=== PATIENT | male | born 1945 | race Caucasian/White ===

== ENCOUNTER → 2016-05-01 | Day surgery (SDC) | payer BC ==
[2016-04-22 15:51] VITALS: Ht 182.9 cm; Wt 80.9 kg
[~2016-05-01] VITALS: Ht 182.9 cm; Wt 80.9 kg
[~2016-05-01] MED LIST: 500ML BSS 0.3ML EPI 1:1000PF IRRIG ONE; ACETAMINOPHEN 325 MG TAB PO PRN; AMVISC PLUS 0.8ML SYRINGE INT OCU ONE; ASPCH81X PO; ATROPINE SULFATE 0.1 MG/ML 5ML SYR IV PRN; BSS FLUSH ONE; CHOL20009 PO; ENDOCOAT 0.85ML SYRINGE INT OCU ONE; EpHEDrine SULFATE INJ 50 MG/ML AMP IV PRN; EpINEphrine INJ 1MG/ML AMP 1 MG/ML AMP ONE; HYDR12.55 PO; LACTATED RINGER'S 1000ML 500 ML IV SCH; LIDOCAINE 4% OP SOLN DROP CHARGE ONE; LIDOCAINE 4% OP SOLN DROP CHARGE OPR SCH; LIDOCAINE HCL 1% MPF 2 ML VIAL ONE; METR0.754 TOP; MIDAZOLAM HCL 1 MG/ML 2ML VIAL ONE; MIX: 4ML BSS 1ML EPI 1:1000 PF INSTIL ONE; MOXIFLOXACIN OPH SOLN PER DROP CHARGE ONE; MULT-506 PO; OFLO0.3S4 OPR; OMEP20CA59 PO; POVIDONE-IODINE OP SOLN 30 ML BTL ONE; PRED1SUS3 OPR; PROPARACAINE 0.5% OP SOLN PER DROP CHARGE OPR SCH; TOBRAMYCIN/DEXAMETHASONE OPH OINT PER APPLN CHARGE ONE
[2016-05-01] MEDS: PHENYLEPHRINE HCL 2.5% OP SOLN PER DROP CHARGE OPR SCH ×3 (08:28→08:38)
[2016-05-01] MEDS: TROPICAMIDE 1% OP SOLN PER DROP CHARGE OPR SCH ×3 (08:29→08:39)
[2016-05-01] MEDS: CYCLOPENTOLATE HCL 1% OP SOLN PER DROP CHARGE OPR SCH ×3 (08:30→08:40)
[2016-05-01] MEDS: MOXIFLOXACIN OPH SOLN PER DROP CHARGE OPR SCH ×3 (08:31→08:41)
--- NOTE | 2016-05-01 08:59 | History & Physical Bridge - [place] ---
H&P Re-Evaluation Bridge Note: I have examined the patient, reviewed the History & Physical and in the interval since the performance of the History & Physical I have noted the following changes of clinical significance: No changes noted
--- NOTE | 2016-05-01 10:08 | [facility] Post Operative Brief Note ---
Immediate Operative Summary Operative Date May 01, 2016. Pre-Operative Diagnosis Cataract Right Eye Post-Operative Diagnosis Same Procedure(s) Performed Right Cataract Phacoemulsification With Intraocular Lens Implant Surgeon Dr. Ventura Aids Social Worker Surgeon(s) None Estimated Blood Loss 0 mL Findings right cataract Specimens None Complication(s) None Disposition
[2016-05-01 10:09] VITALS: TEMP 36.6
--- NOTE | 2016-05-01 10:09 | [facility] Operative Report ---
Operative Report Phaco with monofocal IOL DATE OF OPERATION: 05/01/16 PREOPERATIVE DIAGNOSIS: Senile nuclear cataract, right eye POSTOPERATIVE DIAGNOSIS: Senile nuclear cataract, right eye PROCEDURE PERFORMED: Phacoemulsification with intraocular lens implantation, right eye SURGEON: Dr. Dax Ventura ANESTHESIA: Topical with 1% intracameral lidocaine and monitored anesthesia care COMPLICATIONS: None DESCRIPTION OF PROCEDURE: After positively identifying the patient both verbally and by wristband in the preoperative area, the right eye was marked as the operative eye. The patient was then brought back to the operating room by the anesthesia and nursing staff where they were given a drop of Lidocaine and betadine into the operative eye. They were then sterilely prepped and draped in the standard fashion typical for ophthalmic surgery. Steri-strips were placed along the upper eyelids to keep the lashes back, and a lid speculum was placed into the operative eye. At this point, a documented time out was performed with members of the ophthalmology, nursing, and anesthesia staffs all agreeing upon the correct patient, correct location for surgery, correct procedure, and correct type and power of intraocular lens to be implanted. The microscope was then swung into position. First, a paracentesis wound was made using a sideport blade. Then, in sequence, 1% preservative-free lidocaine followed by Endocoat viscoelastic was injected into the anterior chamber. Next , the main incision was made with a keratome blade in triplanar fashion. A sharp cystotome was introduced into the eye and used to create a tear in the anterior capsule, which was directed into a continuous curvilinear capsulorrhexis using Utrata forceps. Hydrodissection was then performed with BSS on a flat-tip cannula. Next, the phacoemulsification handpiece was introduced into the eye and used to remove the nucleus in a [id number] fashion. This was done without complication and then the irrigation-aspiration handpiece was introduced into the eye and used to remove all remaining cortical and epinuclear material. Amvisc was then injected into the anterior chamber as well as into the capsular bag and using the lens injector system, an MX60 22.5 D lens, serial number [id number], and expiration date 10/2018 was injected into the capsular bag and rotated into the correct position. Next, the irrigation- aspiration handpiece was used to remove all remaining Amvisc. BSS was used to hydrate the main wound, and then BSS was injected into the paracentesis site to reach physiologic pressure and then the main wound was checked and found to be watertight. The patient was given drops of Vigamox and Tobradex ointment into the operative eye, and then the surrounding area was cleaned and dried. A clear plastic shield was placed over the eye and the patient was then sat up and taken from the operating room by the anesthesia staff having tolerated the procedure well and suffering no complications. DISPOSITION: The patient was returned to the recovery room in stable condition. I attest to the content of the Intraoperative Record and any orders documented therein. Any exceptions are noted below.
--- NOTE | 2016-05-01 10:10 | Discharge Instructions-SurgCtr ---
Discharge Instructions Visit Reason for Visit: Cataract Right Eye Discharge Discharge Diagnosis / Problem: right cataract Discharge Goals Goal(s): Decrease discomfort, Improve function Activity Recommendations Activity Limitations: as noted below Anesthesia . Post Anesthesia Instructions: If you have had General Anesthesia or IV Sedation: * Do not drive today. * Resume driving when surgeon permits. * Do not make important decisions or sign legal documents today. * Call surgeon for: 1. Temperature elevations greater than 101 degrees F. 2. Uncontrollable pain. 3. Excessive bleeding. 4. Persistent nausea and vomiting. 5. Medication intolerance (nausea, vomiting or rash). * For nausea and vomiting use only clear liquids such as: tea, soda, bouillon until nausea subsides, then gradually increase diet as tolerated. * If you have any concerns or questions, call your surgeon's office. If physician is unavailable and it is an emergency, call 911 or go to the nearest emergency room. . Instructions / Follow-Up Instructions / Follow-Up ACTIVITY RECOMMENDATIONS: * Light activities. * You may walk outside, read, watch television. * You may notice redness on the white part of the eye and some blurry vision - this is normal. MEDICATIONS: Resume previous medications unless instructed otherwise by your surgeon. Start all eye drops at 12 pm today: * Eye drops (today): Prednisone - one drop in operative eye every 2 hours while awake Ofloxacin - one drop in operative eye every 2 hours while awake SPECIAL CARE INSTRUCTIONS: * Tape plastic shield over eye to sleep at night. Call your doctor at with any concerns or problems. FOLLOW UP VISIT: Follow-up with Dr Ventura at [facility] as scheduled. Diet Recommendations Home Diet: no limitations Procedures Procedures Performed: Right Cataract Phacoemulsification With Intraocular Lens Implant Pending Studies Studies pending at discharge: no Medical Emergencies . Who to Call and When: Medical Emergencies: If at any time you feel your situation is an emergency, please call 911 immediately. . Non-Emergent Contact Non-Emergency issues call your: Surgeon . . "Provider Documentation" section prepared by Dax Ventura.
--- NOTE | 2016-05-01 10:23 | Anesthesia Progress Nt - [facility] ---
Anesthesia Post Op Note Date & Time May 01, 2016 at 10:23 Vital Signs Pain Intensity: 0 Vital Signs Past 12 Hours Date Time Temp Pulse Resp B/P Pulse Ox O2 Delivery O2 Flow Rate FiO2 05/01/16 10:09 36.6 62 12 128/84 97 Room Air 05/01/16 08:22 36.1 64 16 117/76 98 Room Air Notes Mental Status: alert / awake / arousable, participated in evaluation Pt Amnestic to Procedure: Yes Nausea / Vomiting: adequately controlled Pain: adequately controlled Airway Patency, RR, SpO2: stable & adequate BP & HR: stable & adequate Hydration State: stable & adequate Anesthetic Complications: no major complications apparent
[2016-05-01 10:27] VITALS: BP 114/71; PULSE 61; O2SAT 96
== END | disposition home or self-care (01) ==
LOC: X.SURG 08:17
PROVIDERS: ATTEND Ophthalmology
DX: H25.11 Age-related nuclear cataract, right eye (principal); Z98.49 Cataract extraction status, unspecified eye; H25.049 Posterior subcapsular polar age-related cataract, unspecified eye; K21.9 Gastro-esophageal reflux disease without esophagitis

== ENCOUNTER → 2016-05-15 | Day surgery (SDC) | payer BC ==
[2016-05-09 10:53] VITALS: Ht 182.9 cm; Wt 80.9 kg
[~2016-05-15] VITALS: Ht 182.9 cm; Wt 80.9 kg
[~2016-05-15] MED LIST changes: +FENTANYL CITRATE INJ 50 MCG/1 ML 2 ML VIAL IV PRN; +LIDOCAINE 4% OP SOLN DROP CHARGE OPL SCH; -LIDOCAINE 4% OP SOLN DROP CHARGE OPR SCH; -MIX: 4ML BSS 1ML EPI 1:1000 PF INSTIL ONE; +MIX: 4ML BSS 1ML EPI 1:1000 PF TOP ONE; -OFLO0.3S4 OPR; +ONDANSETRON INJ 2 MG/ML 2 ML VIAL IV PRN; +PROPARACAINE 0.5% OP SOLN PER DROP CHARGE OPL SCH; -PROPARACAINE 0.5% OP SOLN PER DROP CHARGE OPR SCH
[2016-05-15] MEDS: PHENYLEPHRINE HCL 2.5% OP SOLN PER DROP CHARGE OPL SCH ×3 (06:35→06:45)
[2016-05-15] MEDS: CYCLOPENTOLATE HCL 1% OP SOLN PER DROP CHARGE OPL SCH ×3 (06:36→06:46)
[2016-05-15] MEDS: TROPICAMIDE 1% OP SOLN PER DROP CHARGE OPL SCH ×3 (06:36→06:46)
[2016-05-15] MEDS: MOXIFLOXACIN OPH SOLN PER DROP CHARGE OPL SCH ×3 (06:37→06:47)
--- NOTE | 2016-05-15 07:30 | [facility] Post Operative Brief Note ---
Immediate Operative Summary Operative Date May 15, 2016. Pre-Operative Diagnosis Cataract Left Eye Post-Operative Diagnosis Same Procedure(s) Performed Left Cataract Phacoemulsification With Intraocular Lens Implant Surgeon Dr. Ventura Driver/Guide Surgeon(s) None Estimated Blood Loss None Findings left cataract Specimens None Complication(s) None Disposition
--- NOTE | 2016-05-15 07:31 | [facility] Operative Report ---
Operative Report Phaco with monofocal IOL DATE OF OPERATION: 05/15/16 PREOPERATIVE DIAGNOSIS: Senile nuclear cataract, left eye POSTOPERATIVE DIAGNOSIS: Senile nuclear cataract, left eye PROCEDURE PERFORMED: Phacoemulsification with intraocular lens implantation, left eye SURGEON: Dr. Dax Ventura ANESTHESIA: Topical with 1% intracameral lidocaine and monitored anesthesia care COMPLICATIONS: None DESCRIPTION OF PROCEDURE: After positively identifying the patient both verbally and by wristband in the preoperative area, the left eye was marked as the operative eye. The patient was then brought back to the operating room by the anesthesia and nursing staff where they were given a drop of Lidocaine and betadine into the operative eye. They were then sterilely prepped and draped in the standard fashion typical for ophthalmic surgery. Steri-strips were placed along the upper eyelids to keep the lashes back, and a lid speculum was placed into the operative eye. At this point, a documented time out was performed with members of the ophthalmology, nursing, and anesthesia staffs all agreeing upon the correct patient, correct location for surgery, correct procedure, and correct type and power of intraocular lens to be implanted. The microscope was then swung into position. First, a paracentesis wound was made using a sideport blade. Then, in sequence, 1% preservative-free lidocaine followed by Endocoat viscoelastic was injected into the anterior chamber. Next , the main incision was made with a keratome blade in triplanar fashion. A sharp cystotome was introduced into the eye and used to create a tear in the anterior capsule, which was directed into a continuous curvilinear capsulorrhexis using Utrata forceps. Hydrodissection was then performed with BSS on a flat-tip cannula. Next, the phacoemulsification handpiece was introduced into the eye and used to remove the nucleus in a [id number] fashion. This was done without complication and then the irrigation-aspiration handpiece was introduced into the eye and used to remove all remaining cortical and epinuclear material. Amvisc was then injected into the anterior chamber as well as into the capsular bag and using the lens injector system, an MX60 22.0 D lens, serial number [id number], and expiration date 07/2018 was injected into the capsular bag and rotated into the correct position. Next, the irrigation- aspiration handpiece was used to remove all remaining Amvisc. BSS was used to hydrate the main wound, and then BSS was injected into the paracentesis site to reach physiologic pressure and then the main wound was checked and found to be watertight. The patient was given drops of Vigamox and Tobradex ointment into the operative eye, and then the surrounding area was cleaned and dried. A clear plastic shield was placed over the eye and the patient was then sat up and taken from the operating room by the anesthesia staff having tolerated the procedure well and suffering no complications. DISPOSITION: The patient was returned to the recovery room in stable condition. I attest to the content of the Intraoperative Record and any orders documented therein. Any exceptions are noted below.
--- NOTE | 2016-05-15 07:32 | Discharge Instructions-SurgCtr ---
Discharge Instructions Visit Reason for Visit: Cataract Left Eye Discharge Discharge Diagnosis / Problem: left cataract Discharge Goals Goal(s): Decrease discomfort, Improve function Activity Recommendations Activity Limitations: as noted below Anesthesia . Post Anesthesia Instructions: If you have had General Anesthesia or IV Sedation: * Do not drive today. * Resume driving when surgeon permits. * Do not make important decisions or sign legal documents today. * Call surgeon for: 1. Temperature elevations greater than 101 degrees F. 2. Uncontrollable pain. 3. Excessive bleeding. 4. Persistent nausea and vomiting. 5. Medication intolerance (nausea, vomiting or rash). * For nausea and vomiting use only clear liquids such as: tea, soda, bouillon until nausea subsides, then gradually increase diet as tolerated. * If you have any concerns or questions, call your surgeon's office. If physician is unavailable and it is an emergency, call 911 or go to the nearest emergency room. . Instructions / Follow-Up Instructions / Follow-Up ACTIVITY RECOMMENDATIONS: * Light activities. * You may walk outside, read, watch television. * You may notice redness on the white part of the eye and some blurry vision - this is normal. MEDICATIONS: Resume previous medications unless instructed otherwise by your surgeon. Start all eye drops at 9:30 am today: * Eye drops (today): Prednisone - one drop in operative eye every 2 hours while awake Ofloxacin - one drop in operative eye every 2 hours while awake SPECIAL CARE INSTRUCTIONS: * Tape plastic shield over eye to sleep at night. Call your doctor at with any concerns or problems. FOLLOW UP VISIT: Follow-up with Dr Ventura at [facility] as scheduled. Diet Recommendations Home Diet: no limitations Procedures Procedures Performed: Left Cataract Phacoemulsification With Intraocular Lens Implant Pending Studies Studies pending at discharge: no Medical Emergencies . Who to Call and When: Medical Emergencies: If at any time you feel your situation is an emergency, please call 911 immediately. . Non-Emergent Contact Non-Emergency issues call your: Surgeon . . "Provider Documentation" section prepared by Dax Ventura.
[2016-05-15 07:36] VITALS: TEMP 36.3
--- NOTE | 2016-05-15 07:39 | Anesthesiology Progress Note ---
Anesthesia Post Op Note Date & Time May 15, 2016 at 07:38 Vital Signs Pain Intensity: 0 Vital Signs Past 12 Hours Date Time Temp Pulse Resp B/P Pulse Ox O2 Delivery O2 Flow Rate FiO2 05/15/16 07:36 36.3 58 16 122/81 96 Room Air 05/15/16 06:22 36.4 63 16 118/76 95 Room Air Notes Mental Status: alert / awake / arousable, participated in evaluation Pt Amnestic to Procedure: Yes Nausea / Vomiting: adequately controlled Pain: adequately controlled Airway Patency, RR, SpO2: stable & adequate BP & HR: stable & adequate Hydration State: stable & adequate Anesthetic Complications: no major complications apparent
[2016-05-15 07:43] VITALS: BP 113/77; PULSE 70; O2SAT 96
== END | disposition home or self-care (01) ==
LOC: X.SURG 06:15
PROVIDERS: ATTEND Ophthalmology
DX: H25.12 Age-related nuclear cataract, left eye (principal); Z68.24 Body mass index [BMI] 24.0-24.9, adult

== ENCOUNTER → 2016-10-16 | Outpatient (CLI) | payer BC ==
[~2016-10-16] MED LIST changes: -500ML BSS 0.3ML EPI 1:1000PF IRRIG ONE; -ACETAMINOPHEN 325 MG TAB PO PRN; -AMVISC PLUS 0.8ML SYRINGE INT OCU ONE; -ATROPINE SULFATE 0.1 MG/ML 5ML SYR IV PRN; -BSS FLUSH ONE; -ENDOCOAT 0.85ML SYRINGE INT OCU ONE; -EpHEDrine SULFATE INJ 50 MG/ML AMP IV PRN; -EpINEphrine INJ 1MG/ML AMP 1 MG/ML AMP ONE; -FENTANYL CITRATE INJ 50 MCG/1 ML 2 ML VIAL IV PRN; -LACTATED RINGER'S 1000ML 500 ML IV SCH; -LIDOCAINE 4% OP SOLN DROP CHARGE ONE; -LIDOCAINE 4% OP SOLN DROP CHARGE OPL SCH; -LIDOCAINE HCL 1% MPF 2 ML VIAL ONE; -MIDAZOLAM HCL 1 MG/ML 2ML VIAL ONE; -MIX: 4ML BSS 1ML EPI 1:1000 PF TOP ONE; -MOXIFLOXACIN OPH SOLN PER DROP CHARGE ONE; -ONDANSETRON INJ 2 MG/ML 2 ML VIAL IV PRN; -POVIDONE-IODINE OP SOLN 30 ML BTL ONE; -PROPARACAINE 0.5% OP SOLN PER DROP CHARGE OPL SCH; -TOBRAMYCIN/DEXAMETHASONE OPH OINT PER APPLN CHARGE ONE
== END | disposition home or self-care (01) ==
LOC: C.RDSM 12:20
PROVIDERS: ATTEND Family Medicine Sports Medicine
DX: M79.672 Pain in left foot (principal)

== ENCOUNTER 2024-10-26 09:52 | Inpatient (IN) ==
[2024-10-26] MEDS: PLASMA-LYTE A 1,000 ML IV ONE (10:22)
--- NOTE | 2024-10-26 10:47 | Emergency Department Note ---
Impression & Plan Rhabdomyolysis, Anaplasmosis, Recurrent falls, Ambulatory dysfunction, Generalized weakness, Pancytopenia, Acute hyponatremia, Abrasion of face ED Provider Note NAME: SHALOM WOLFF AGE: 78 SEX: M : 1945 ARRIVES VIA: Walk-In INFORMANT: Patient, ED PROVIDER(S): Deven Constantino DO CHIEF COMPLAINT: weakness, falls HPI: This is a 78-year-old male with the PMHx of prostate cancer, hyperlipidemia, and esophageal reflux presenting to [facility] for further evaluation of significant weakness c/b multiple falls. History is by by the patient as well as his at the bedside. He reports that the over the weekend he went on a kayaking trip. He states over the last few days. He has been significantly weak as well as lightheaded. He does report vertiginous symptoms. Patient states this feels more like lightheadedness rather than the room spinning. Patient does have history of vertigo. He also reports intermittent nausea with multiple episodes of emesis. Patient has had 2 falls. Both falls have been within the home. Patient states that he fell while ambulating to the bathroom. He did fall onto his right side. He struck his head. Patient did not lose consciousness. He states that he felt nauseous and warm prior to the falls. Patient reports he has not been keeping up with his hydration status in the setting of that heat and exertional activities. They deny fever or chills. No cough or congestion. Denies chest pain or palpitations. No shortness of breath. They deny abdominal pain. No urinary complaints. No recent changes in bowel movements. Patient denies recent changes in medications or OTC supplements. Patient offers no other complaints, today. ADDITIONAL HISTORY OBTAINED: Per HPI Chronic Medical/Social Conditions Affecting Care: Per HPI PAST MEDICAL HISTORY: See Below PAST SURGICAL HISTORY: See Below FAMILY HISTORY: See Below SOCIAL HISTORY: See Below HOME MEDICATIONS: See Below ALLERGIES: See Below VITALS: See Below PHYSICAL EXAMINATION: GENERAL: Sitting up in bed, alert, well appearing, well nourished, no distress, non-toxic HEAD: Patient has right facial abrasions. No Medel sign. No other evidence of external head trauma. No contusions or hematoma present. EYE EXAM: normal conjunctiva. PERRL and EOM's grossly intact. OROPHARYNX: no exudate, no erythema, lips, buccal mucosa, and tongue normal and mucous membranes are moist, No blood within the oral cavity or loose teeth NECK: supple, no nuchal rigidity, no adenopathy, non-tender LUNGS: Clear to auscultation. Normal chest wall mechanics HEART: no murmurs, regular rate, regular rhythm ABDOMEN: abdomen soft, non-tender, normo-active bowel sounds, no masses, no rebound or guarding. BACK: Back is symmetrical on inspection and there is no deformity, no midline tenderness, no CVA tenderness. SKIN: no rashes and no bruising UPPER EXTREMITIES: upper extremities are grossly normal. LOWER EXTREMITIES: No pitting edema. NEURO EXAM: Normal sensorium, cranial nerves II-XII grossly intact, normal speech, no gross weakness of arms, no gross weakness of legs. No drift. Finger to nose intact. Gross sensation intact. MEDICAL DECISION MAKING: Differential diagnosis includes but not limited to peripheral vertigo, central etiology of vertigo, dehydration, electrolyte derangements, ACS, dysrhythmia,, pneumonia, pneumothorax, rib fracture, cervical spine fracture, intracranial hemorrhage, skull fracture, facial fracture and injuries In summary, this is a 78-year-old presenting for significant weakness and multiple falls. Triage and nursing notes reviewed. Patient is afebrile and hemodynamically stable. Diagnostics interpreted by me include EKG and cardiac monitoring as listed below: -Cardiac Monitoring: An order was placed for continuous cardiac monitoring. The monitor shows a rate of 70s with regular rhythm. -ECG: EKG independently 2 by me reveals normal sinus rhythm at a ventricular rate of [address] segment change/STEMI. There are supraventricular complexes that are premature on this rhythm strip. Intervals within normal limits. History provided by the patient includes weakness over the past few days with vertiginous symptoms. He has fallen multiple times over the course of the last few days. Head strike and evidence of head/facial trauma. Some prodromal symptoms prior to falling. Does appear hypovolemic. Suspect likely dehydration as well as peripheral vertigo. Doubt central etiology at this time. Physical examination reveals the only evidence of trauma includes right facial abrasions. Given history and presentation, we will proceed with CT head, C-spine and maxillofacial scan. Plan to collect basic lab work as well as EKG and chest x- ray. Will add CK on as the patient has had multiple falls and ambulatory dysfunction with unknown amount of downtime. We will provide IV fluid resuscitation. Labs and imaging reviewed. Pertinent findings include new pancytopenia with relatively stable anemia compared to prior. Patient does have minimal hyponatremia. Troponin was mildly elevated. Patient's symptoms are not consistent with angina. Patient's EKG is reassuring. Patient does have an elevated CK. I do believe the patient likely has acute rhabdomyolysis. Plan to repeat troponin. Chest x-ray independently interpreted by me reveals no acute displaced rib fracture, pneumothorax, pleural effusion or focal and filtrate to suggest pneumonia. CT head and C-spine independently interpreted by me as negative for acute intracranial pathology including hemorrhage and skull fracture. Patient CT max face revealed no acute facial fractures. We will continue IV fluid resuscitation for acute rhabdomyolysis. Given the patient's significant weakness and frequent falls, I am concerned for his safety at home. I do feel it is reasonable to admit this patient for IV hydration and clearance for return home. Lab did call with abnormal results. They reported inclusions consistent with anaplasmosis on CBC. Patient was started on doxycycline and I added tickborne illness panel to the patient's workup as well as blood smear. Will that his tickborne illness including anaplasmosis likely explains mild elevation in AST as well as his pancytopenia. Patient will need to continue doxycycline. I recommended to admit this patient to the hospital. The patient was discussed with Dr. Voss, [facility] hospitalist. He was agreeable to admit the patient and further history and my workup was discussed with the inpatient team. I discussed results as well as the treatment plan with the patient as well as his at the bedside. They verbalized understanding of results and treatment plan. They are agreeable to inpatient management. Consults/Care Managements Discussions: Per MDM ER treatment provided: See above Procedures:none Critical Care: None Past Med/Surg History Problem List (Updated 10/26/24 @ 16:23 by Deven Constantino DO) Abrasion of face (Acute) Acute hyponatremia (Acute) Pancytopenia (Acute) Generalized weakness (Acute) Ambulatory dysfunction (Acute) Recurrent falls (Acute) Anaplasmosis (Acute) Rhabdomyolysis (Acute) Elevated troponin Recurrent falls Weakness Anaplasmosis Rhabdomyolysis Urinary urgency Laceration of right thigh (Acute) Laceration of right thigh (Acute) Esophageal reflux Hypercalcemia Tubular adenoma of colon Depressive disorder, not elsewhere classified Other and unspecified hyperlipidemia Nephrolithiasis Prostate cancer screening encounter, options and risks discussed Encounter for pre-operative examination Hernia, inguinal, right Medical History Osteoporosis Inguinal hernia, right Kidney stones hx GERD (gastroesophageal reflux disease) Pilonidal cyst Surgical History H/O right inguinal hernia repair (02/14/22) Open Right Direct Inguinal Hernia Repair with Mesh. (Right) - Mitchell Ames MD, FACS Quadriceps tendon rupture s/p Left Open Quad Tendon Repair History of lithotripsy History of colonoscopy (2020) 2020 H/O arthroscopic knee surgery Family History Brother Kidney stone Social History Smoking Status: Never smoker Second Hand Exposure: Yes (PARENTS SMOKED); Do You Dip or Chew Tobacco: No; Hx Alcohol Use: Yes Alcohol type: wine and hard liquor Alcohol Intake Frequency: 4 or More x per/Week Hx Substance Use: No Preferred Language: Cambodian Communication Ability: Effective Visual Impairment: Limited Raw Hide Trimmer Required: No Beliefs That Will Affect Care: None marital status: Current Living Situation: Spouse current occupational status: retired How many Children do You have: 1 How many Children do You have Comment: daughter Feels Safe at Home: Yes during the past year weight has: remained stable Assistive Devices: Glasses Allergies Allergies Allergy/AdvReac Type Severity Reaction Status Date / Time No Known Allergies Allergy Mild Verified 10/26/24 13:04 Home Meds Home Medications Medication Instructions Recorded Confirmed multivitamin (Daily Multi-Vitamin 1 tab PO QAM 02/28/21 10/26/24 tablet) omeprazole 20 mg capsule,delayed 20 mg PO QAM 02/28/21 10/26/24 release alendronate 70 mg tablet 70 mg PO WK 05/18/21 10/26/24 cholecalciferol (vitamin D3) 50 50 mcg PO QAM 05/18/21 10/26/24 mcg (2,000 unit) tablet (Vitamin D3) loratadine 10 mg tablet 10 mg PO QAM 05/18/21 10/26/24 metronidazole 1 % topical cream 1 applic topical DAILY 05/29/21 10/26/24 aspirin 81 mg tablet,delayed 81 mg PO DAILY 02/14/22 10/26/24 release (Adult Low Dose Aspirin) allopurinol 100 mg tablet 200 mg PO QAM 10/26/24 10/26/24 colchicine 0.6 mg tablet 0.6 mg PO DAILY 10/26/24 10/26/24 hydrochlorothiazide 12.5 mg tablet 12.5 mg PO QAM 10/26/24 10/26/24 oxybutynin chloride 5 mg 5 mg PO DAILY PRN Urinary 10/26/24 10/26/24 tablet,extended release 24 hr Discomfort Results & Data (ED) Vital Signs Vital Signs - 24 hr 10/26/24 09:56 10/26/24 10:12 10/26/24 10:27 Temperature 37.2 C Temperature Source Temporal Artery Scan Pulse Rate 82 85 78 Pulse Rate from SpO2 Sensor Respiratory Rate 18 26 H 18 Respiratory Effort / Characteristics Non-Labored Spontaneous Respiratory Depth Normal Blood Pressure 114/63 Blood Pressure Mean 80 Blood Pressure Position Sitting Pulse Oximetry 98 Oxygen Delivery Method Room Air Sepsis Recent Fever Within 48 Hours No Sepsis New/Unexplained Change in Mental Status No Sepsis Action Taken by Nursing No Action Required 10/26/24 10:33 10/26/24 10:40 10/26/24 10:45 Temperature Temperature Source Pulse Rate 71 82 68 Pulse Rate from SpO2 Sensor Respiratory Rate 12 22 Respiratory Effort / Characteristics Respiratory Depth Blood Pressure Blood Pressure Mean Blood Pressure Position Pulse Oximetry Oxygen Delivery Method Sepsis Recent Fever Within 48 Hours Sepsis New/Unexplained Change in Mental Status Sepsis Action Taken by Nursing 10/26/24 10:51 10/26/24 10:56 10/26/24 10:57 Temperature Temperature Source Pulse Rate 71 76 69 Pulse Rate from SpO2 Sensor Respiratory Rate 23 18 24 Respiratory Effort / Characteristics Respiratory Depth Blood Pressure Blood Pressure Mean Blood Pressure Position Pulse Oximetry 96 Oxygen Delivery Method Room Air Sepsis Recent Fever Within 48 Hours Sepsis New/Unexplained Change in Mental Status Sepsis Action Taken by Nursing 10/26/24 11:11 10/26/24 11:18 10/26/24 11:21 Temperature Temperature Source Pulse Rate 74 69 Pulse Rate from SpO2 Sensor 67 67 Respiratory Rate 23 21 Respiratory Effort / Characteristics Respiratory Depth Blood Pressure 157/69 H Blood Pressure Mean 96 Blood Pressure Position Pulse Oximetry 95 95 Oxygen Delivery Method Sepsis Recent Fever Within 48 Hours Sepsis New/Unexplained Change in Mental Status Sepsis Action Taken by Nursing 10/26/24 11:27 10/26/24 11:30 10/26/24 11:30 Temperature Temperature Source Pulse Rate 67 Pulse Rate from SpO2 Sensor 74 Respiratory Rate 23 Respiratory Effort / Characteristics Respiratory Depth Blood Pressure 154/80 H 154/80 H Blood Pressure Mean 92 92 Blood Pressure Position Pulse Oximetry 97 Oxygen Delivery Method Sepsis Recent Fever Within 48 Hours Sepsis New/Unexplained Change in Mental Status Sepsis Action Taken by Nursing 10/26/24 11:33 10/26/24 11:45 10/26/24 12:00 Temperature Temperature Source Pulse Rate 64 68 Pulse Rate from SpO2 Sensor 67 71 Respiratory Rate 21 15 Respiratory Effort / Characteristics Respiratory Depth Blood Pressure 155/81 H Blood Pressure Mean 102 Blood Pressure Position Pulse Oximetry 94 96 Oxygen Delivery Method Sepsis Recent Fever Within 48 Hours Sepsis New/Unexplained Change in Mental Status Sepsis Action Taken by Nursing 10/26/24 12:00 10/26/24 12:00 10/26/24 12:03 Temperature Temperature Source Pulse Rate 82 Pulse Rate from SpO2 Sensor 74 Respiratory Rate 23 Respiratory Effort / Characteristics Respiratory Depth Blood Pressure 155/81 H 155/81 H Blood Pressure Mean 102 102 Blood Pressure Position Pulse Oximetry 92 Oxygen Delivery Method Sepsis Recent Fever Within 48 Hours Sepsis New/Unexplained Change in Mental Status Sepsis Action Taken by Nursing Laboratory Data 10/26/24 10:15 10/26/24 10:15 Lab Results 10/26/24 10/26/24 Range/Units 10:15 12:24 WBC 4.23 L (4.8-10.8) K/ul RBC 3.68 L (4.70-6.10) M/uL Hgb 12.0 L (14.0-18.0) g/dl Hct 35.2 L (42.0-52.0) % MCV 95.7 (80.0-100.0) fL MCH 32.6 (25.0-34.0) pg MCHC 34.1 (32.0-36.0) g/dL RDW Std Deviation 51.1 H (36.4-46.3) fL RDW Coeff of Sapphire 14.6 H (11.5-14.5) % Plt Count 82 L (130-400) K/uL MPV 10.4 (9.4-12.4) fL Immature Gran % (Auto) 0.5 % Neut % (Auto) 92.5 % Lymph % (Auto) 3.5 % [place] % (Auto) 3.3 % Eos % (Auto) 0.0 % Baso % (Auto) 0.2 % Neut # (Auto) 3.91 (1.40-6.50) K/uL Lymph # (Auto) 0.15 L (1.20-3.40) K/uL [place] # (Auto) 0.14 (0.11-0.59) K/uL Eos # (Auto) 0.00 (0.00-0.50) K/uL Baso # (Auto) 0.01 (0.00-0.20) K/uL Immature Gran # (Auto) 0.02 (0.01-0.20) K/uL Peripher Smr Path Cons Sodium 134 L (136-145) mmol/L Potassium 3.5 (3.5-5.1) mmol/L Chloride 101 (98-107) mmol/L Carbon Dioxide 25 (21-32) mmol/L Anion Gap 8 (3-11) BUN 19 (6-23) mg/dl Creatinine 1.09 (0.6-1.4) mg/dl Est Cr Clr Drug Dosing Not Reportable eGFR 69.47 BUN/Creatinine Ratio 17.4 (10-20) Glucose 109 H (70-99(Fasting)) mg/dl Calcium 8.3 L (8.6-10.3) mg/dl Magnesium 1.9 (1.7-2.4) mg/dl Total Bilirubin 0.9 (0.2-1.0) mg/dl AST 63 H (13-39) U/L ALT 30 (7-52) U/L Alkaline Phosphatase 67 (34-104) U/L Total Creatine Kinase 1296 H (30-223) U/L Troponin I High Sens 20.9 H 24.3 H (0-20) pg/ml Total Protein 6.4 (6.0-8.3) gm/dl Albumin 3.3 L (3.4-5.0) gm/dl Globulin 3.1 (2.5-4.0) gm/dl Albumin/Globulin Ratio 1.1 (0.9-2) Lipase 8 L (11-82) U/L Urine Color Yellow Urine Appearance Clear (Clear) Urine pH 5.5 (4.5-7.5) Ur Specific [place] 1.020 (1.000-1.030) Urine Protein 2+ H (Negative) Urine Glucose (UA) Negative (Negative) Urine Ketones 2+ H (Negative) Urine Blood 2+ H (Negative) Urine Nitrite Negative (Negative) Urine Bilirubin Negative (Negative) Urine Urobilinogen Negative (Negative) Ur Leukocyte Esterase Negative (Negative) Urine WBC (Auto) 0-5 (0-5) /hpf Urine RBC (Auto) 0-2 (0-2) /hpf U Hyaline Cast (Auto) 3-5 H (0-2) /lpf U Epithel Cells (Auto) 0-2 (0-2) /hpf Urine Bacteria (Auto) None Seen (None Seen) Urine Comment Anaplasma Smear See Comment A Cancelled Anaplasma Comment Pos for Anaplasma Babesia Smear Cancelled Lyme Disease Screen Positive H (Negative) Lyme Tier 2 IgG Confirm Positive H (Negative) Lyme Tier 2 IgM Confirm Negative (Negative) Administered Medications Lactated Ringer's (Lr) 1,000 mls @ 200 mls/hr IV .Q5H CLARI Stop: 10/29/24 12:29 Last Admin: 10/26/24 12:28 Dose: 200 mls/hr Documented By: DAVID Discontinued Medications Doxycycline Hyclate (Doxycycline Hyclate 100 Mg Cap) 100 mg PO NOW STA Stop: 10/26/24 12:07 Last Admin: 10/26/24 12:28 Dose: 100 mg Documented By: DAVID Parenteral Electrolytes (Plasma-Lyte A Ph 7.4) 1,000 mls @ 999 mls/hr IV .Q1H1M ONE Stop: 10/26/24 11:12 Last Infusion: 10/26/24 13:49 Dose: Infused Documented By: Admin: 10/26/24 10:22 Dose: 999 mls/hr Documented By: OZZIE Ceftriaxone Sodium (Rocephin) 2,000 mg in 50 mls @ 100 mls/hr IV NOW STA Stop: 10/26/24 12:46 Last Infusion: 10/26/24 13:48 Dose: Infused Documented By: Admin: 10/26/24 12:28 Dose: 100 mls/hr Documented By: DAVID Imaging Data Radiologist's Impression: Cervical Spine CT 10/26/24 10:11 CT SCAN OF THE CERVICAL SPINE CLINICAL HISTORY: Fall. COMPARISON STUDY: No priors TECHNIQUE: CT scan of the cervical spine is performed from the skull base to the upper thoracic spine. Images are reviewed in the axial, sagittal, and coronal planes. IV contrast was not administered for this examination. A dose lowering technique was utilized adhering to the principles of ALARA. CT DOSE: 1904.45 mGy.cm FINDINGS: Skeletal structures: The skeletal structures are osteopenia. There is no evidence of fracture or subluxation involving the cervical spine. Vertebral body height and alignment are maintained. Anterior osteophytes are seen throughout. The odontoid process and lateral masses are intact. The atlantoaxial articulation is preserved noting mild productive degenerative change. There is bony fusion of the left facet joint at C2-C3. The spinous processes appear intact. There is mild/moderate multilevel cervical spondylosis. Uncovertebral and facet arthropathy contribute to neural foraminal narrowing at several levels. Intervertebral discs: There is moderate to severe disc space narrowing at C5-C6 and moderate narrowing at C6-C7. Mild disc space narrowing is seen at the remaining cervical levels. Central canal: Posterior disc osteophyte complexes are seen at all cervical levels between C3-C4 and C6-C7. This likely contributes to multilevel acquired compromise of the central canal. Soft tissues: The prevertebral and paraspinous soft tissues are within normal limits. Calvarium: The visualized calvarium at the skull base appears intact. Brain parenchyma: Partially visualized brain parenchyma at the skull base is within normal limits. Sinuses and mastoids: Mild mucosal thickening secretions is seen within the right sphenoid sinus. There is trace medial soft tissue thickening within the maxillary antra noting a 1.5 cm retention cyst on the right. The mastoid air cells are well pneumatized. Lung apices: A 7 mm right apical pulmonary nodule is partially seen on axial image #593. Pleural parenchymal scarring is seen at both apices. IMPRESSION: 1. There is no evidence of cervical spine fracture or subluxation. 2. Osteopenia and spondylotic change as above. 3. There is a 7 mm right apical pulmonary nodule. Follow-up with a dedicated chest CT in 3 months time is recommended for reassessment and full evaluation of the thorax. ACT 112: Positive. There are findings on this exam that require communication between the performing entity and the patient following Patient Test Result Information Act ([place] Act 112) guidelines. Electronically signed by: Jason Orozco M.D. 10/26/2024 11:29 AM Chest X-Ray 10/26/24 10:11 SINGLE VIEW CHEST CLINICAL HISTORY: Fall. FINDINGS: An AP, portable, upright chest radiograph is compared to study dated 01/14/2022. The cardiomediastinal silhouette is top normal for projection. Chronic interstitial thickening is similar to previous. There is mild bibasilar scarring/atelectasis. No airspace consolidation or large pleural effusion is identified. No pneumothorax is seen. The skeletal structures are osteopenic. The bony thorax is grossly intact. Arthritic change is seen in the shoulders. IMPRESSION: No acute cardiopulmonary abnormality is identified. ACT 112: Negative or not required by law. Electronically signed by: Jason Orozco M.D. 10/26/2024 11:[address] 10/26/24 10:11 CT facial bones wo con CLINICAL HISTORY: 78 years-old Male presenting with fall right facial abrasions. Acute right facial pain status post trauma COMPARISON STUDY: CT head and cervical spine studies of same day TECHNIQUE: High-resolution CT scan of the facial bones is performed. Images are reviewed in the axial, sagittal, and coronal planes. IV contrast was not administered for this examination. A dose lowering technique was utilized adhering to the principles of ALARA. FINDINGS: There is no evidence of facial bone fracture. The bony orbits are intact and the orbital contents are within normal limits. The zygomatic arches, nasal bones, and pterygoid plates are preserved. The maxilla and mandible are intact. Streak artifact from dental amalgam hardware limits the study. Mastoid air cells are clear. Small maxillary sinus polyps are noted. Prior bilateral lens repair. Degenerative changes of the imaged cervical spine. Partially imaged brain parenchyma is within normal limits. IMPRESSION: No acute facial bone fracture. ACT 112: Negative or not required by law. The above report was generated using voice recognition software. It may contain grammatical, syntax or spelling errors. Electronically signed by: Jose Galindo M.D. 10/26/2024 11:[address] 10/26/24 10:11 CT head/brain wo con CLINICAL HISTORY: 78 years-old Male with fall head strike. Acute head trauma TECHNIQUE: Multiple axial CT images of the head were obtained without contrast. A dose lowering technique was utilized adhering to the principles of ALARA. COMPARISON: 05/18/2021 FINDINGS: No acute intracranial hemorrhage, midline shift, intracranial mass, hydrocephalus, territorial ischemia or abnormal extra-axial collection. Minimal involutional changes. The calvarium is intact. Mastoid air cells are clear. 1.6 cm polyp within the dependent right maxillary sinus. IMPRESSION: No acute intracranial abnormality or calvarial fracture. ACT 112: Negative or not required by law. The above report was generated using voice recognition software. It may contain grammatical, syntax or spelling errors. Electronically signed by: Jose Galindo M.D. 10/26/2024 11:30 AM Discharge Plan Visit Data Chief Complaint: Dizziness Stated Complaint: NAUSEA,DIZZINESS,VOMITING,BALANCE ED Provider: Deven Constantino Discharge Problem: Rhabdomyolysis, Anaplasmosis, Recurrent falls, Ambulatory dysfunction, Generalized weakness, Pancytopenia, Acute hyponatremia, Abrasion of face Patient Disposition: Admitted As Inpatient Condition: Serious Discharge Instructions Interventions: ED Discharge Assessment Last Done: 10/26/24 14:05 Discharge Problem: Rhabdomyolysis Qualifiers: Rhabdomyolysis type: traumatic Encounter type: initial encounter Qualified Code(s): T79.6XXA - Traumatic ischemia of muscle, initial encounter Abrasion of face Qualifiers: Encounter type: initial encounter Qualified Code(s): S00.81XA - Abrasion of other part of head, initial encounter
[2024-10-26 10:57] LABS: Hematocrit (blood only) 35.2 % (42.0-52.0); Hemoglobin 12.0 g/dl (14.0-18.0); Mean Corpuscular Hemoglobin 32.6 pg (25.0-34.0); Mean Corpuscular Volume 95.7 fL (80.0-100.0); RDW Standard Deviation 51.1 fL (36.4-46.3); Red Blood Count 3.68 M/uL (4.70-6.10); White Blood Count 4.23 K/ul (4.8-10.8)
[2024-10-26 11:09] LABS: Alanine Aminotransferase 30 U/L (7-52); Albumin Globulin Ratio 1.1 (0.9-2); Alkaline Phosphatase 67 U/L (34-104); Anion Gap 8 (3-11); Bilirubin,Total 0.9 mg/dl (0.2-1.0); Blood Urea Nitrogen 19 mg/dl (6-23); Calcium 8.3 mg/dl (8.6-10.3); Carbon Dioxide 25 mmol/L (21-32); Chloride 101 mmol/L (98-107); Creatine Kinase 1296 U/L (30-223); Globulin 3.1 gm/dl (2.5-4.0); Glucose 109 mg/dl (70-99(Fasting)); Lipase 8 U/L (11-82); Magnesium 1.9 mg/dl (1.7-2.4); Potassium 3.5 mmol/L (3.5-5.1); Sodium 134 mmol/L (136-145); Total Protein 6.4 gm/dl (6.0-8.3)
--- NOTE | 2024-10-26 11:10 | XRay Report ---
SINGLE VIEW CHEST CLINICAL HISTORY: Fall. FINDINGS: An AP, portable, upright chest radiograph is compared to study dated 01/14/2022. The cardiom ediastinal silhouette is top normal for projection. Chronic interstitial thickening is similar to pre vious. There is mild bibasilar scarring/atelectasis. No airspace consolidation or large pleural effus ion is identified. No pneumothorax is seen. The skeletal structures are osteopenic. The bony thorax i s grossly intact. Arthritic change is seen in the shoulders. IMPRESSION: No acute cardiopulmonary abnormality is identified. ACT 112: Negative or not required by law. Electronically signed by: Jason Orozco M.D. 10/26/2024 11:08 AM
[2024-10-26 11:20] LABS: Platelet Count 82 K/uL (130-400)
--- NOTE | 2024-10-26 11:31 | CT Scan Report ---
CT head/brain wo con CLINICAL HISTORY: 78 years-old Male with fall head strike. Acute head trauma TECHNIQUE: Multiple axial CT images of the head were obtained without contrast. A dose lowering tech nique was utilized adhering to the principles of ALARA. COMPARISON: 05/18/2021 FINDINGS: No acute intracranial hemorrhage, midline shift, intracranial mass, hydrocephalus, territorial ischem ia or abnormal extra-axial collection. Minimal involutional changes. The calvarium is intact. Mastoid air cells are clear. 1.6 cm polyp within the dependent right maxill nadya sinus. IMPRESSION: No acute intracranial abnormality or calvarial fracture. ACT 112: Negative or not required by law. The above report was generated using voice recognition software. It may contain grammatical, syntax o r spelling errors. Electronically signed by: Jose Galindo M.D. 10/26/2024 11:30 AM
--- NOTE | 2024-10-26 11:31 | CT Scan Report ---
CT SCAN OF THE CERVICAL SPINE CLINICAL HISTORY: Fall. COMPARISON STUDY: No priors TECHNIQUE: CT scan of the cervical spine is performed from the skull base to the upper thoracic spine . Images are reviewed in the axial, sagittal, and coronal planes. IV contrast was not administered fo r this examination. A dose lowering technique was utilized adhering to the principles of ALARA. CT DOSE: 1904.45 mGy.cm FINDINGS: Skeletal structures: The skeletal structures are osteopenia. There is no evidence of fracture or subl uxation involving the cervical spine. Vertebral body height and alignment are maintained. Anterior o steophytes are seen throughout. The odontoid process and lateral masses are intact. The atlantoaxial articulation is preserved noting mild productive degenerative change. There is bony fusion of the lef t facet joint at C2-C3. The spinous processes appear intact. There is mild/moderate multilevel cervic al spondylosis. Uncovertebral and facet arthropathy contribute to neural foraminal narrowing at sever al levels. Intervertebral discs: There is moderate to severe disc space narrowing at C5-C6 and moderate narrowin g at C6-C7. Mild disc space narrowing is seen at the remaining cervical levels. Central canal: Posterior disc osteophyte complexes are seen at all cervical levels between C3-C4 and C6-C7. This likely contributes to multilevel acquired compromise of the central canal. Soft tissues: The prevertebral and paraspinous soft tissues are within normal limits. Calvarium: The visualized calvarium at the skull base appears intact. Brain parenchyma: Partially visualized brain parenchyma at the skull base is within normal limits. Sinuses and mastoids: Mild mucosal thickening secretions is seen within the right sphenoid sinus. The re is trace medial soft tissue thickening within the maxillary antra noting a 1.5 cm retention cyst o n the right. The mastoid air cells are well pneumatized. Lung apices: A 7 mm right apical pulmonary nodule is partially seen on axial image #593. Pleural pare nchymal scarring is seen at both apices. IMPRESSION: 1. There is no evidence of cervical spine fracture or subluxation. 2. Osteopenia and spondylotic change as above. 3. There is a 7 mm right apical pulmonary nodule. Follow-up with a dedicated chest CT in 3 months geri e is recommended for reassessment and full evaluation of the thorax. ACT 112: Positive. There are findings on this exam that require communication between the performing entity and the patient following Patient Test Result Information Act ([place] Act 112) guidelines. Electronically signed by: Jason Orozco M.D. 10/26/2024 11:29 AM
--- NOTE | 2024-10-26 11:36 | CT Scan Report ---
CT facial bones wo con CLINICAL HISTORY: 78 years-old Male presenting with fall right facial abrasions. Acute right facial p ain status post trauma COMPARISON STUDY: CT head and cervical spine studies of same day TECHNIQUE: High-resolution CT scan of the facial bones is performed. Images are reviewed in the axia l, sagittal, and coronal planes. IV contrast was not administered for this examination. A dose lower ing technique was utilized adhering to the principles of ALARA. FINDINGS: There is no evidence of facial bone fracture. The bony orbits are intact and the orbital contents are within normal limits. The zygomatic arches, nasal bones, and pterygoid plates are preserved. The max illa and mandible are intact. Streak artifact from dental amalgam hardware limits the study. Mastoid air cells are clear. Small maxillary sinus polyps are noted. Prior bilateral lens repair. Deg enerative changes of the imaged cervical spine. Partially imaged brain parenchyma is within normal li mits. IMPRESSION: No acute facial bone fracture. ACT 112: Negative or not required by law. The above report was generated using voice recognition software. It may contain grammatical, syntax o r spelling errors. Electronically signed by: Jose Galindo M.D. 10/26/2024 11:34 AM
--- NOTE | 2024-10-26 11:56 | History & Physical Report ---
Date of Service October 26, 2024 Assessment & Plan (1) Rhabdomyolysis: (2) Anaplasmosis: (3) Weakness: (4) Recurrent falls: (5) Elevated troponin: Plan Patient is a 78-year-old male with past medical history of GERD and colon cancer. Patient presented due to several days of dehydration, weakness, falls after working outside in the heat found to have acute rhabdomyolysis with a CK of 1296. he is being admitted for IV fluids. #rhabdomyolysis/fall/weakness/anaplasmosis - CK 1296, mild elevation of AST 63, otherwise LFTs wnl. Renal function and electrolytes stable. Positive on initial anaplasmosis smear. Diagnostic imaging negative for acute changes. - Tick panel sent, Lyme screen ordered - received 1L Plasma-Lyte in ED, continue fluid resuscitation with LR 200 mL/hour Tylenol prn for pain PT/OT consulted neuro-checks every 4 hours with head strike, hold baby aspirin UA ordered doxycycline 100 Mg twice daily ordered, will cover with Rocephin given severity of illness trend CMP and CK #elevated troponin initial troponin 20.98, EKG showed NSR, no ischemic changes. Patient denies any chest pain. Suspect elevated 2/2 demand with acute illness above. 2-hour repeat ordered, Will trend every 6 hours - monitor on tele #pancytopenia - suspect 2/2 anaplasmosis. WBC 4.23, Hgb 12, platelet count 82; new onset. Trend CBC Will likely need outpatient follow-up labs #pulmonary noduleincidental finding on CT - 7 mm right apical pulmonary nodule Follow-up with outpatient PCP regarding repeat imaging #GERDcontinue PPI VTE ppx: SCDs, defer chemical with thrombocytopenia Dispo: med/telemetry Admission and Anticipated Discharge Date Admission Date: 10/26/24 History of Present Illness Chief Complaint: dizziness Primary Care Provider: Graciela Hernandez DO Patient is a 78-year-old male with past medical history of GERD and colon cancer. Patient presented due to several days of dehydration, weakness, falls after working outside in the heat found to have acute rhabdomyolysis with a CK of 1296. he is being admitted for IV fluids. Patient seen at bedside with his present. 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 He has been cutting the grass and doing things outside in this heat. He has had numerous episodes similar to this where he gets dehydrated, shaky, and loses his balance. He has had 2 falls due to poor balance over the weekend, did strike his head, no loss of consciousness, denies syncopal episode. He denies any nausea, vomiting, diarrhea, fevers, chest pain, shortness of breath, cough, congestion. He does not recall any tick bites or recent rashes however stated it could be possible. He denies nicotine use. He typically has 4 glasses of wine per week. He took all of his home medications today. He wishes to be full code. Allergies Allergy/AdvReac Type Severity Reaction Status Date / Time No Known Allergies Allergy Mild Verified 10/26/24 13:04 Home Medications Medication Instructions Recorded Confirmed Type multivitamin (Daily Multi-Vitamin 1 tab PO QAM 02/28/21 10/26/24 History tablet) omeprazole 20 mg capsule,delayed 20 mg PO QAM 02/28/21 10/26/24 History release alendronate 70 mg tablet 70 mg PO WK 05/18/21 10/26/24 History cholecalciferol (vitamin D3) 50 50 mcg PO QAM 05/18/21 10/26/24 History mcg (2,000 unit) tablet (Vitamin D3) loratadine 10 mg tablet 10 mg PO QAM 05/18/21 10/26/24 History metronidazole 1 % topical cream 1 applic topical DAILY 05/29/21 10/26/24 History aspirin 81 mg tablet,delayed 81 mg PO DAILY 02/14/22 10/26/24 History release (Adult Low Dose Aspirin) allopurinol 100 mg tablet 200 mg PO QAM 10/26/24 10/26/24 History colchicine 0.6 mg tablet 0.6 mg PO DAILY 10/26/24 10/26/24 History hydrochlorothiazide 12.5 mg tablet 12.5 mg PO QAM 10/26/24 10/26/24 History oxybutynin chloride 5 mg 5 mg PO DAILY PRN Urinary 10/26/24 10/26/24 History tablet,extended release 24 hr Discomfort Past Med/Surg History Problem List (Updated 10/26/24 @ 12:37 by Maisha Baker PA-C) Elevated troponin Recurrent falls Weakness Anaplasmosis Rhabdomyolysis Urinary urgency Laceration of right thigh (Acute) Laceration of right thigh (Acute) Esophageal reflux Hypercalcemia Tubular adenoma of colon Depressive disorder, not elsewhere classified Other and unspecified hyperlipidemia Nephrolithiasis Prostate cancer screening encounter, options and risks discussed Encounter for pre-operative examination Hernia, inguinal, right Medical History (Updated 10/26/24 @ 12:37 by Maisha Baker PA-C) Osteoporosis Inguinal hernia, right Kidney stones hx GERD (gastroesophageal reflux disease) Pilonidal cyst Surgical History (Updated 02/14/22 @ 12:16 by Beverly Marvin RN) H/O right inguinal hernia repair (02/14/22) Open Right Direct Inguinal Hernia Repair with Mesh. (Right) - Mitchell Ames MD, FACS Quadriceps tendon rupture s/p Left Open Quad Tendon Repair History of lithotripsy History of colonoscopy (2020) 2020 H/O arthroscopic knee surgery Family History Brother Kidney stone Social History Smoking Status: Never smoker Second Hand Exposure: Yes (PARENTS SMOKED); Do You Dip or Chew Tobacco: No; Hx Alcohol Use: Yes Alcohol type: wine and hard liquor Alcohol Intake Frequency: 4 or More x per/Week Hx Substance Use: No Preferred Language: Yakut Communication Ability: Effective Visual Impairment: Limited Milk Runner Required: No Beliefs That Will Affect Care: None marital status: Current Living Situation: Spouse current occupational status: retired How many Children do You have: 1 How many Children do You have Comment: daughter Feels Safe at Home: Yes during the past year weight has: remained stable Assistive Devices: Glasses Review of Systems Review of Systems: see HPI Physical Exam Physical Exam: The patient is awake, alert and oriented 3, well developed and well nourished, normocephalic and atraumatic, in no acute distress. Non-toxic appearing. HEENT- EOMI, mucous membranes dry. Hearing grossly intact. Ecchymosis to right face. Heart-normal S1 and S2. No murmurs, rubs or gallops. Lungs-clear bilaterally, no respiratory distress, no accessory muscle use. Abdomen-normal bowel sounds and soft. No ascites noted. Non-tender. Extremities- no clubbing, cyanosis, or edema. Rheumatologic-normal range of motion. Psychiatric-normal affect. Results & Data Results & Data Vital Signs (Past 12 Hours) Vital Signs Temp Pulse Resp BP Pulse Ox O2 Del Method 10/26/24 11:21 69 21 95 10/26/24 11:18 74 23 95 10/26/24 11:11 157/69 H 10/26/24 10:57 69 24 10/26/24 10:56 76 18 96 Room Air 10/26/24 10:51 71 23 10/26/24 10:45 68 22 10/26/24 10:40 82 10/26/24 10:33 71 12 10/26/24 10:27 78 18 10/26/24 10:12 85 26 H 10/26/24 09:56 37.2 C 82 18 114/63 98 Room Air Laboratory Results Reviewed CBC, CMP, CK, troponin, lipase Diagnostic Findings reviewed head CT, face CT, CXR, cervical spine CT Medications Administered EDPlasma-Lyte 1L ECG Additional Comments: sinus rhythm with PVCs, rate 79 QTc 428 Code Status & VTE Plan Code Status full VTE Prophylaxis Plan VTE Prophylaxis will be ordered: Yes Supervising Physician Co-Signing Physician Notes The patient is a 70-year-old male with past medical history including GERD and colon cancer. He presents to the emergency department with several days of generalized malaise, dehydration, weakness, and falls after working outside. In emergency department he was found to have CK of 1296 suggestive of acute rhabdomyolysis. Peripheral smear was found to be positive for occlusion bodies, suggestive of anaplasmosis. He reports having been working out cutting grass at his cabin several days ago. Acute rhabdomyolysis/fall/weakness/anaplasmosis- CK 1296, AST 63, ALT 30. Anaplasmosis smear with inclusion body suggestive of anaplasmosis Further workup for tick infection including Lyme disease, anaplasmosis and babesiosis antibodies have been ordered Patient will be started on doxycycline 100 mg p.o. twice daily. The patient will also be started on ceftriaxone IV He is status post 1 L Plasma-Lyte from the ED Continue fluid resuscitation with LR at 200 mL/h x 1 additional liter Acetaminophen 600 mg by mouth every 6 hours as needed for mild pain or fever Consult PT/OT Follow serial CBC with differential, chemistry profile, magnesium level, CK Elevated troponin-initial troponin 20.98. EKG showed normal sinus rhythm and no ischemic changes Repeat troponin is pending Mild pancytopenia, more significant thrombocytopenia- WBC 4.23, hemoglobin 12, platelet count 82 Likely secondary to anaplasmosis Follow laboratories 7 mm right apical pulmonary nodule- Incidental finding on CT scan Patient follow-up with outpatient PCP for repeat imaging Remaining orders and notations as noted PG Care Time/CCT Total # of Minutes Spent Total Time Spent with Patient: Total time spent is greater than 50% in coordination of care (as documented) at patient's floor/unit and/or counseling patient: Coding Level of Care Code 41563 INT INP/OBS CARE 3/75MIN Diagnoses Rhabdomyolysis M62.82 Anaplasmosis A77.49 Weakness R53.1 Recurrent falls R29.6 Elevated troponin R79.89
[2024-10-26 12:05] LABS: Immature Granulocytes # (auto) 0.02 K/uL (0.01-0.20); Immature Granulocytes % (auto) 0.5 %
[2024-10-26] MEDS: DOXYCYCLINE HYCLATE 100 MG CAP PO STA (12:28)
[2024-10-26] MEDS: LACTATED RINGER'S 1,000 ML IV SCH (12:28)
[2024-10-26] MEDS: cefTRIAXone SODIUM 2,000 MG/50 ML BAG IV STA (12:28)
[2024-10-26 12:50] LABS: Appearance Urine Clear (Clear); Bacteria Urine Automated None Seen (None Seen); Epithelial Cell Urine Auto 0-2 /hpf (0-2); Glucose Urine UA Negative (Negative); RBC Urine Automated 0-2 /hpf (0-2); WBC Urine Automated 0-5 /hpf (0-5)
[2024-10-26 13:32] LABS: Lyme Screen Rflx Confirmation Positive (Negative)
[2024-10-26] MEDS ORDERED: ONDANSETRON INJ 2 MG/ML 2 ML VIAL IV PRN (14:01)
[2024-10-26] MEDS ORDERED: MELATONIN 3 MG TAB PO PRN (14:01)
[2024-10-26] MEDS ORDERED: ACETAMINOPHEN 325 MG TAB PO PRN (14:01)
[2024-10-26] MEDS ORDERED: DOCUSATE SODIUM 100 MG CAP PO PRN (14:01)
[2024-10-26 14:18] LABS: Lyme Ab IgG 2nd Tier Confirm Positive (Negative)
[2024-10-26 14:19] LABS: Lyme Ab IgM 2nd Tier Confirm Negative (Negative)
[2024-10-26 14:40] LABS: Anaplasmosis Smear(Rpt to DOH) Pos for Anaplasma
--- NOTE | 2024-10-26 18:09 | Electrocardiogram Report ---
Test Reason : Blood Pressure : */* mmHG Vent. Rate : 79 BPM Atrial Rate : 79 BPM P-R Int : 172 ms QRS Dur : 88 ms QT Int : 374 ms P-R-T Axes : 54 -21 56 degrees QTcB Int : 428 ms Sinus rhythm with Premature supraventricular complexes Otherwise normal ECG When compared with ECG of 18-May-2021 16:16, Premature supraventricular complexes are now Present Confirmed by Alen Fry ([id number]) on 10/26/2024 6:09:03 PM Referred By: Confirmed By: Alen Fry
[2024-10-26] MEDS: DOXYCYCLINE HYCLATE 100 MG CAP PO SCH (19:43)
[2024-10-27 05:53] LABS: Hematocrit (blood only) 32.7 % (42.0-52.0); Hemoglobin 11.2 g/dl (14.0-18.0); Immature Granulocytes # (auto) 0.01 K/uL (0.01-0.20); Immature Granulocytes % (auto) 0.4 %; Mean Corpuscular Hemoglobin 32.9 pg (25.0-34.0); Mean Corpuscular Volume 96.2 fL (80.0-100.0); Platelet Count 51 K/uL (130-400); RDW Standard Deviation 50.7 fL (36.4-46.3); Red Blood Count 3.40 M/uL (4.70-6.10); White Blood Count 2.74 K/ul (4.8-10.8)
[2024-10-27 06:10] LABS: Alanine Aminotransferase 40.0 U/L (7-52); Albumin Globulin Ratio 1.2 (0.9-2); Alkaline Phosphatase 74.0 U/L (34-104); Anion Gap 5.0 (3-11); Bilirubin,Total 0.6 mg/dl (0.2-1.0); Blood Urea Nitrogen 15.0 mg/dl (6-23); Calcium 7.7 mg/dl (8.6-10.3); Carbon Dioxide 27.0 mmol/L (21-32); Chloride 104.0 mmol/L (98-107); Creatine Kinase 999.0 U/L (30-223); Creatinine Clr Calc Pharmacy 66.8 ml/min; Globulin 2.5 gm/dl (2.5-4.0); Glucose 92.0 mg/dl (70-99(Fasting)); Magnesium 2.0 mg/dl (1.7-2.4); Potassium 3.7 mmol/L (3.5-5.1); Sodium 136.0 mmol/L (136-145); Total Protein 5.5 gm/dl (6.0-8.3)
[2024-10-27] MEDS: LORATADINE 10 MG TAB PO SCH (09:55)
[2024-10-27] MEDS: cefTRIAXone SODIUM 2,000 MG/50 ML BAG IV SCH (12:14)
--- NOTE | 2024-10-27 14:34 | Hospitalist Progress Note ---
Date of Service October 27, 2024 Assessment & Plan (1) Rhabdomyolysis: (2) Anaplasmosis: (3) Weakness: (4) Recurrent falls: (5) Elevated troponin: Plan Patient is a 78-year-old male with past medical history of GERD and colon cancer. Patient presented due to vertigo, fall, and vomiting after kayaking with family on Friday. Patient was found to have acute rhabdomyolysis with a CK of 1296. He was admitted for IV fluids. Patient is currently stable and is eating and drinking well. He does not appear to be volume overloaded and tolerating treatment well. #rhabdomyolysis/fall/weakness/anaplasmosis - Renal function and electrolytes stable. Positive on initial anaplasmosis smear. Diagnostic imaging negative for acute changes. - CK is trending downwards - Lyme screen IgG positive but IgM negative. - received 1L Plasma-Lyte in ED, continue fluid resuscitation with LR 200 mL/hour Tylenol prn for pain PT/OT consulted doxycycline 100 Mg twice daily ordered, will cover with Rocephin given severity of illness trend CMP and CK #elevated troponin initial troponin 20.98, EKG showed NSR, no ischemic changes. Patient denies any chest pain. Suspect elevated 2/2 demand with acute illness above. Peak troponin was 36.5 yesterday. Current troponin levels are trending downward at 22.8. - monitor on tele #pancytopenia - suspect 2/2 anaplasmosis. WBC 2.74, Hgb 11.2, platelet count 51 Trend CBC, especially with large drop of platelet count. Will order another CDC w/ diff for this afternoon. Platelet count came back 54. Will likely need outpatient follow-up labs #pulmonary noduleincidental finding on CT - 7 mm right apical pulmonary nodule Follow-up with outpatient PCP regarding repeat imaging #GERDcontinue PPI VTE ppx: SCDs, defer chemical with thrombocytopenia Dispo: med/telemetry Admission and Anticipated Discharge Date Admission Date: October 26, 2024 Supervising Physician Co-Signing Physician Notes Attending attestation Pt seen and examined in concert with Dr. Ayala. In agreement with the documented findings as noted in the resident documentation with any exceptions or additions as noted here. Resting comfortably in bed without face/head pain following contusions at home. Improving overall fatigue. VS as noted. On examination, S1/S2 nl RRR no MCG. CTAB. 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 Continue to monitor for low platelet level and replete if needed < 50 or with spontaneous bleeding Else see resident documentation as noted. Subjective Patient presented into the ED with vertigo and falling. Patient reported that he went kayaking with family on Friday and came back home. On Friday he "crashed" and was sleeping most of the day. On Friday morning he felt that his "body wasnt working" and had an episode of vertigo. Patient fell down twice and also vomited once while at home. He then presented into the ER and vomited twice while in the ER. Patient also reported that he may have gotten bit by a tick 3 weeks ago when he was up at his family [place] in [facility] to help fix the well. Patient denies vomiting at this point and is doing well. Patient is eating and drinking okay. Patient isn't dizzy in bed. Review of Systems Review of Systems: as per subjective HPI Physical Exam Constitutional: WD/WN, vitals as above Respiratory: normal respiratory effort, lungs clear to auscultation Cardiovascular: Rate/Rhythm: + bradycardic (slightly) Heart Sounds: normal S1 and normal S2 no leg edema Skin: Trauma: + evidence of skin trauma (on face) and + contusion (on face) Psychiatric: Eye Contact: good eye contact Speech: normal rate/rhythm/volume of speech Thought Process: linear/logical thought process Results & Data Results & Data Vital Signs (Past 12 Hours) Vital Signs Temp Pulse Pulse Resp BP Pulse Ox O2 Del Method 10/27/24 11:01 36.5 C 80 19 122/71 99 Room Air 10/27/24 08:00 56 L 10/27/24 07:34 36.6 C 61 18 121/69 98 Room Air 10/27/24 02:57 36.6 C 55 L 18 120/73 97 Room Air
[2024-10-27 17:18] LABS: Hematocrit (blood only) 34.3 % (42.0-52.0); Hemoglobin 11.5 g/dl (14.0-18.0); Immature Granulocytes # (auto) 0.01 K/uL (0.01-0.20); Immature Granulocytes % (auto) 0.4 %; Mean Corpuscular Hemoglobin 32.3 pg (25.0-34.0); Mean Corpuscular Volume 96.3 fL (80.0-100.0); Platelet Count 54 K/uL (130-400); RDW Standard Deviation 51.1 fL (36.4-46.3); Red Blood Count 3.56 M/uL (4.70-6.10); White Blood Count 2.66 K/ul (4.8-10.8)
[2024-10-28 06:30] LABS: Alanine Aminotransferase 41.0 U/L (7-52); Albumin Globulin Ratio 1.1 (0.9-2); Alkaline Phosphatase 96.0 U/L (34-104); Anion Gap 5.0 (3-11); Bilirubin,Total 0.5 mg/dl (0.2-1.0); Blood Urea Nitrogen 15.0 mg/dl (6-23); Calcium 7.8 mg/dl (8.6-10.3); Carbon Dioxide 27.0 mmol/L (21-32); Chloride 105.0 mmol/L (98-107); Creatine Kinase 504.0 U/L (30-223); Creatinine Clr Calc Pharmacy 68.9 ml/min; Globulin 2.6 gm/dl (2.5-4.0); Glucose 89.0 mg/dl (70-99(Fasting)); Potassium 3.7 mmol/L (3.5-5.1); Sodium 137.0 mmol/L (136-145); Total Protein 5.4 gm/dl (6.0-8.3)
[2024-10-28 06:53] LABS: Hematocrit (blood only) 32.1 % (42.0-52.0); Hemoglobin 11.1 g/dl (14.0-18.0); Immature Granulocytes # (auto) 0.01 K/uL (0.01-0.20); Immature Granulocytes % (auto) 0.3 %; Mean Corpuscular Hemoglobin 32.7 pg (25.0-34.0); Mean Corpuscular Volume 94.7 fL (80.0-100.0); Platelet Count 55 K/uL (130-400); RBC Morphology Unremarkable; RDW Standard Deviation 49.6 fL (36.4-46.3); Red Blood Count 3.39 M/uL (4.70-6.10); White Blood Count 3.46 K/ul (4.8-10.8)
[2024-10-28 12:27] VITALS: PULSE 70; RESP 16; TEMP 98.6; O2SAT 95
[2024-10-28 13:59] VITALS: BP 133/76
--- NOTE | 2024-10-28 15:15 | Discharge Summary ---
Date of Service October 28, 2024 Admission HPI Per Admitting Provider Patient is a 78-year-old male with past medical history of GERD and colon cancer. Patient presented due to several days of dehydration, weakness, falls after working outside in the heat found to have acute rhabdomyolysis with a CK of 1296. he is being admitted for IV fluids. Patient seen at bedside with his present. 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 He has been cutting the grass and doing things outside in this heat. He has had numerous episodes similar to this where he gets dehydrated, shaky, and loses his balance. He has had 2 falls due to poor balance over the weekend, did strike his head, no loss of consciousness, denies syncopal episode. He denies any nausea, vomiting, diarrhea, fevers, chest pain, shortness of breath, cough, congestion. He does not recall any tick bites or recent rashes however stated it could be possible. He denies nicotine use. He typically has 4 glasses of wine per week. He took all of his home medications today. He wishes to be full code. Admission Exam Per Admitting Provider GENERAL: Sitting up in bed, alert, well appearing, well nourished, no distress, non-toxic HEAD: Patient has right facial abrasions. No Medel sign. No other evidence of external head trauma. No contusions or hematoma present. EYE EXAM: normal conjunctiva. PERRL and EOM's grossly intact. OROPHARYNX: no exudate, no erythema, lips, buccal mucosa, and tongue normal and mucous membranes are moist, No blood within the oral cavity or loose teeth NECK: supple, no nuchal rigidity, no adenopathy, non-tender LUNGS: Clear to auscultation. Normal chest wall mechanics HEART: no murmurs, regular rate, regular rhythm ABDOMEN: abdomen soft, non-tender, normo-active bowel sounds, no masses, no rebound or guarding. BACK: Back is symmetrical on inspection and there is no deformity, no midline tenderness, no CVA tenderness. SKIN: no rashes and no bruising UPPER EXTREMITIES: upper extremities are grossly normal. LOWER EXTREMITIES: No pitting edema. NEURO EXAM: Normal sensorium, cranial nerves II-XII grossly intact, normal speech, no gross weakness of arms, no gross weakness of legs. No drift. Finger to nose intact. Gross sensation intact. Principal Diagnosis Rhabdomyolysis with Anaplasmosis Discharge Exam Constitutional WD/WN, vitals as above Respiratory normal respiratory effort, lungs clear to auscultation Cardiovascular Rate/Rhythm: + bradycardic (slightly) Heart Sounds: normal S1 and normal S2 Skin Trauma: + evidence of skin trauma (on face) and + contusion (on face) Psychiatric Eye Contact: good eye contact Speech: normal rate/rhythm/volume of speech Thought Process: linear/logical thought process Discharge Data Allergies Allergy/AdvReac Type Severity Reaction Status Date / Time No Known Allergies Allergy Mild Verified 10/26/24 13:04 Consultations 10/26/24 12:02 ED Decision to Admit Stat 10/26/24 12:08 ED Decision to Admit Stat Ordered Studies 10/26/24 10:11 CT cervical spine wo con Stat CT face [CT facial bones wo con] Stat CT head/brain wo con Stat Hospital Course (1) Recurrent falls: (2) Rhabdomyolysis: (3) Anaplasmosis: (4) Weakness: (5) Elevated troponin: Plan Patient is a 78-year-old male with past medical history of GERD and colon cancer. Patient presented due to vertigo, fall, and vomiting after kayaking with family on Friday. Patient was found to have acute rhabdomyolysis with a CK of 1296. He was admitted for IV fluids. Patient is currently stable on day od discharge and is eating and drinking well. His CK has trended downward to 504. Due to the CK being about 1.5x above the Upper Limit of Normal, and trending downwards, he was stable for discharge. He does not appear to be volume overloaded and tolerating treatment well. #rhabdomyolysis/fall/weakness/anaplasmosis - Renal function and electrolytes stable. Positive on initial anaplasmosis smear. Diagnostic imaging negative for acute changes. - CK is trending downwards - Lyme screen IgG positive but IgM negative. - received 1L Plasma-Lyte in ED, continue fluid resuscitation with LR 200 mL/hour Tylenol prn for pain PT/OT consulted doxycycline 100 Mg twice daily ordered. Continue for 12 more additional days. - Studies still pending: A. phagocytophilum DNA, Babesia microti DNA PCR, Ehrlichia DNA (PCR) #elevated troponin initial troponin 20.98, EKG showed NSR, no ischemic changes. Patient denies any chest pain. Suspect elevated 2/2 demand with acute illness above. Peak troponin was 36.5 yesterday. Current troponin levels are trending downward at 22.8. - monitor on tele #pancytopenia - suspect 2/2 anaplasmosis. WBC 2.74, Hgb 11.2, platelet count 51 Trend CBC, especially with large drop of platelet count. Will order another CDC w/ diff for this afternoon. Platelet count came back 54. Will likely need outpatient follow-up labs #pulmonary noduleincidental finding on CT - 7 mm right apical pulmonary nodule Follow-up with outpatient PCP regarding repeat chest CT in 3 months. #GERDcontinue PPI VTE ppx: SCDs, defer chemical with thrombocytopenia Dispo: med/telemetry Total Time Total Time Spent Total Time Spent (In Minutes): per attending Discharge Plan Discharge Items Patient Disposition: Home - Self-Care Reason For Visit: RHABDO, ANAPLASMOSIS Discharge Diagnosis: Rhabdo, Anaplasmosis Condition on Discharge: Fair Activity: Per Instructions section Non-emergency contact: Primary Care Provider Call non-emergency contact if: your symptoms worsen and your temperature is above 101.5 Follow-up/Referrals: Graciela Hernandez, [Primary Care Provider] - 11/02/24 3:40 pm (Primary Care hospital follow up scheduled on 11/02/24 at 3:40 with Graciela Hernandez) Diet: Regular Addtl Attending Provider Instructions: You were admitted into the ER because of weakness, falling, vertigo, and vomiting. We provided head imaging, chest imaging, a test to see if you have lyme disease, various labs, and a screen to look at your urine. The labs that we got back showed that you had rhabdomyolysis. We gave fluids to help flush out your body and get rid of your rhabdomyolysis. The test for lyme came back showing you had lyme in the past as well as showing a small bacteria called anaplasmosis. We provided antibiotics because of what we found on the lyme test. The head imaging didn't show any signs of stroke or any broken bones. The chest imaging showed a very small (7mm) spot. We recommend you follow this up with your PCP and to get a repeat chest CT in 3 months. Please continue to drink plenty of fluids and rest. With your labs we saw you having a low platelet count. This could be caused by the lyme. However, they are starting to go back up again, which is good. Please follow this up with your PCP and have repeat labs to make sure they are continuing to go up. New Medications: We are going to send you home with an antibiotic called "doxycycline" to take fo r 12 more additional days. Please take 1 tablet this evening then tomorrow start taking 2 tablets of the antibiotic until completion. Pending Studies at Discharge: Yes Stand-Alone Forms: My [facility], Smoking Cessation Medications and DC Order Prescriptions: New doxycycline hyclate 100 mg Capsule 100 mg PO BID 12 Days Qty: 24 0RF Continued omeprazole 20 mg capsule,delayed release(DR/EC) 20 mg PO QAM multivitamin [Daily Multi-Vitamin] Tablet 1 tab PO QAM aspirin [Adult Low Dose Aspirin] 81 mg tablet,delayed release (DR/EC) 81 mg PO DAILY alendronate 70 mg tablet 70 mg PO WK Rx Instructions: Sundays cholecalciferol (vitamin D3) [Vitamin D3] 50 mcg (2,000 unit) Tablet 50 mcg PO QAM loratadine 10 mg Tablet 10 mg PO QAM metronidazole 1 % Cream 1 applic TOPICAL DAILY allopurinol 100 mg tablet 200 mg PO QAM oxybutynin chloride 5 mg tablet extended release 24hr 5 mg PO DAILY PRN (Reason: Urinary Discomfort) colchicine 0.6 mg tablet 0.6 mg PO DAILY hydrochlorothiazide 12.5 mg Tablet 12.5 mg PO QAM Discharge Orders: Discharge Order (Routine); Ordered 10/28/24 Ordered By: Apollo Ayala Admission Data Admit Date/Time: 10/26/24 12:31 Attending Provider: Alen Olvera Admit Provider: Niranjan Villalba Primary Care Provider: Graciela Hernandez Other Providers: Magdaleno Voss; Niranjan Villalba Other Interventions: Discharge Summary Assessment (RN) Last Done: 10/28/24 13:57 Supervising Physician Co-Signing Physician Notes Attending attestation Pt seen and examined in concert with Dr. Ayala. In agreement with the documented findings as noted in the resident documentation with any exceptions or additions as noted here. Resting comfortably in bed without face/head pain. VS as noted. On examination, S1/S2 nl RRR no MCG. CTAB. 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 Pancytopenia in the setting of above - stable x 24 hours. Would repeat CBC on outpatient follow up. Else see resident documentation as noted. Total attending physician time spent with this patient's care on the day of discharge: 35 minutes. Resident Activity Tracking Resident Involvement: Resident Care Provided Care Provided: Adult Hospital Medicine
== END 2024-10-28 13:58 | disposition home or self-care (01) | DRG 558 ==
LOC: ED 09:52 → SUATTDRO 12:31 → EDINP 12:31 → 4W 17:11